=== PATIENT | male | born 1985 | race Caucasian/White ===

== ENCOUNTER 2018-02-13 13:48 | Emergency (ER) | payer OTHER, SELFPAY ==
--- NOTE | 2018-02-13 14:22 | RAD ---
THREE VIEWS LEFT ANKLE: INDICATIONS: Rolled ankle with heel pain. FINDINGS: No acute fracture or subluxation is evident. There is a healed, instrumented calcaneal fracture. 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 There is mild talonavicular osteoar throsis. IMPRESSION: 1. No acute osseous abnormality. 2. Posttraumatic and postsurgical changes of the left ankle. POS: [facility]
--- NOTE | 2018-02-13 14:46 | RAD ---
THREE VIEWS LEFT FOOT: 02/13/2018 HISTORY: Heel pain. Ankle injury. COMPARISON: 06/29/2008 FINDINGS: There is postoperative hardware associated with the calcaneus, treating an old fracture. There is mi ld flattening of the first metatarsal head, unchanged when compared to 06/29/2008. There is no displ aced fracture or evidence of dislocation seen. There is no interval change when compared to the 2007 exam. There is degenerative change at the first tarsometatarsal joint, stable as well. IMPRESSION: Stable appearance of left foot, as detailed above. No acute fracture or dislocation seen. POS: [facility]
== END 2018-02-13 16:17 | disposition home or self-care (01) ==
LOC: ERS 13:48
DX: M72.2 Plantar fascial fibromatosis (principal)

== ENCOUNTER 2018-03-01 18:06 | Emergency (ER) | payer SELFPAY ==
[2018-03-01 18:43] LABS: #Basophils 0.1 thou/uL (0.0-0.2); #Eosinphils 0.1 thou/uL (0.0-0.7); #Lymphocytes 2.7 thou/uL (1.20-3.40); #Monocytes 1.5 thou/uL (0.11-0.59); #Neutrophils 7.8 thou/uL (1.40-6.50); %Basophils 0.4 % (0.0-1.0); %Eosinophils 0.6 % (0.0-10.0); %Lymphocytes 22.3 % (21.0-51.0); %Monocytes 12.2 % (0.0-10.0); %Neutrophils 64.5 % (42.0-75.0); Hemoglobin 14.8 g/dL (14.0-18.0); Mean Corpuscular HGB CONC 34.2 g/dL (32.0-36.0); Mean Corpuscular Hemoglobin 31.2 pg (27.0-31.0); Mean Corpuscular Volume 91.2 fl (80.0-94.0); Mean Platelet Volume 5.9 fL (7.4-10.4); Platelet Count 304 thou/uL (130-400); Red Blood Cell (RBC) Count 4.73 mill/uL (4.70-6.10); White Blood Cell (WBC) Count 12.1 thou/uL (4.8-10.8)
[2018-03-01 19:04] LABS: ALT (SGPT) 22 U/L (8-55); AST (SGOT) 25 U/L (5-34); Albumin 4.4 g/dL (3.5-5.0); Alkaline Phosphatase 63 U/L (40-150); Anion Gap 15 mmol/L (10-20); BUN (Urea Nitrogen) 11 mg/dL (8.9-20.6); Bilirubin, Total 0.6 mg/dL (0.2-1.2); Calc. Creatinine Clearance 0 mL/min (70-130); Calcium 9.4 mg/dL (7.8-10.44); Carbon Dioxide 24 mmol/L (22-29); Chloride 106 mmol/L (98-107); Estimated GFR-MDRD Greater than 90; Globulin 2.3 g/dL (2.4-3.5); Glucose 85 mg/dL (70-105); Potassium 3.7 mmol/L (3.5-5.1); Protein, Total 6.7 g/dL (6.0-8.3); Sodium 141 mmol/L (136-145)
[2018-03-01 19:09] LABS: CKMB 2.1 ng/mL (0-6.6); Troponin I Less than 0.010 ng/mL (< 0.028)
[2018-03-01] MEDS ORDERED: Nicotine 14 MG PATCH TOP SCH (23:59)
[2018-03-02 01:39] LABS: Cocaine Metabolite Screen Not Detected (NotDetected); Medtox Reader # READER 4; Phencyclidine (PCP) Not Detected (NotDetected); THC/Cannabinoid Screen Not Detected (NotDetected)
[2018-03-02 01:40] LABS: Amphetamine Detected (NotDetected); Barbiturates Screen Not Detected (NotDetected); Benzodiazepine Screen Not Detected (NotDetected); Medtox Control Line Valid? VALID (VALID); Methadone Not Detected (NotDetected); Methamphetamine Detected (NotDetected); Opiate Screen Not Detected (NotDetected); Oxycodone Screen Not Detected (NotDetected); Tricyclic Screen Not Detected (NotDetected)
[2018-03-02] MEDS ORDERED: hydrOXYzine 25 MG TAB ONE (02:55)
[2018-03-02] MEDS ORDERED: diphenhydrAMINE 25 MG CAP ONE ×2 (02:55→22:26)
[2018-03-02] MEDS ORDERED: hydrOXYzine Pamoate 25 mg Capsule PO PRN (03:00)
[2018-03-02] MEDS ORDERED: hydrOXYzine Pamoate 25 mg Capsule ONE ×2 (14:23→20:04)
[2018-03-02] MEDS ORDERED: Nicotine 14 MG PATCH ONE (22:27)
== END 2018-03-03 03:20 ==
LOC: ERS 18:06
DX: F15.10 Other stimulant abuse, uncomplicated (principal); F32.9 Major depressive disorder, single episode, unspecified; F17.210 Nicotine dependence, cigarettes, uncomplicated; Z79.899 Other long term (current) drug therapy
CPT/HCPCS: 80053; 80306; 80307; 82553; 84484; 85025; 93005; Q0177

== ENCOUNTER 2018-04-12 14:37 | Emergency (ER) | payer SELFPAY ==
[2018-04-12 15:57] LABS: #Basophils 0.1 thou/uL (0.0-0.2); #Eosinphils 0.1 thou/uL (0.0-0.7); #Lymphocytes 1.9 thou/uL (1.20-3.40); #Monocytes 1.3 thou/uL (0.11-0.59); #Neutrophils 12.4 thou/uL (1.40-6.50); %Basophils 0.3 % (0.0-1.0); %Eosinophils 0.8 % (0.0-10.0); %Lymphocytes 12.2 % (21.0-51.0); %Monocytes 8.3 % (0.0-10.0); %Neutrophils 78.4 % (42.0-75.0); Hemoglobin 15.8 g/dL (14.0-18.0); Mean Corpuscular HGB CONC 34.4 g/dL (32.0-36.0); Mean Corpuscular Volume 93.1 fl (80.0-94.0); Mean Platelet Volume 6.3 fL (7.4-10.4); Platelet Count 341 thou/uL (130-400); RBC Distribution Width 11.9 % (11.5-14.5); Red Blood Cell (RBC) Count 4.92 mill/uL (4.70-6.10); White Blood Cell (WBC) Count 15.9 thou/uL (4.8-10.8)
[2018-04-12 16:20] LABS: ALT (SGPT) 19 U/L (8-55); AST (SGOT) 18 U/L (5-34); Albumin 3.6 g/dL (3.5-5.0); Alkaline Phosphatase 58 U/L (40-150); Anion Gap 9 mmol/L (10-20); BUN (Urea Nitrogen) 11 mg/dL (8.9-20.6); Bilirubin, Total 0.4 mg/dL (0.2-1.2); Calc. Creatinine Clearance 0 mL/min (70-130); Carbon Dioxide 30 mmol/L (22-29); Chloride 104 mmol/L (98-107); Estimated GFR-MDRD Greater than 90; Potassium 3.9 mmol/L (3.5-5.1); Protein, Total 5.6 g/dL (6.0-8.3); Sodium 139 mmol/L (136-145)
[2018-04-12 16:23] LABS: Glucose 53 mg/dL (70-105)
[2018-04-12 16:27] LABS: Bilirubin Small (Negative); Blood, Urine Negative (Negative); Clarity CLEAR (Clear); Glucose, Urine (Dipstick) Negative (Negative); Leukocyte Negative (Negative); Nitrite Negative (Negative); Protein, Urine (Dipstick) Trace mg/dL (Neg-Trace); Specific Gravity, Urine 1.034 (1.002-1.036); pH, Urine 6.5 (5.0-9.0)
[2018-04-12] MEDS ORDERED: Ketorolac Tromethamine 30 MG/ML VIAL ONE (17:39)
[2018-04-12] MEDS ORDERED: Bacitracin Zinc Ointment 30 gm TUBE TOP SCH (17:45)
[2018-04-12 18:04] LABS: Cocaine Metabolite Screen Not Detected (NotDetected); Medtox Reader # READER 4; Phencyclidine (PCP) Not Detected (NotDetected); THC/Cannabinoid Screen Not Detected (NotDetected)
[2018-04-12 18:05] LABS: Amphetamine Detected (NotDetected); Barbiturates Screen Not Detected (NotDetected); Benzodiazepine Screen Not Detected (NotDetected); Medtox Control Line Valid? VALID (VALID); Methadone Not Detected (NotDetected); Methamphetamine Not Detected (NotDetected); Opiate Screen Not Detected (NotDetected); Oxycodone Screen Not Detected (NotDetected); Tricyclic Screen Not Detected (NotDetected)
[2018-04-12] MEDS ORDERED: traZODone HCl 50 MG TAB ONE (23:33)
[2018-04-12] MEDS ORDERED: hydrOXYzine Pamoate 25 mg Capsule PO SCH (23:45)
[2018-04-12] MEDS ORDERED: FLUoxetine HCl 20 MG/5 ML UDCUP PO SCH (23:45)
[2018-04-13] MEDS ORDERED: Sulfameth/Trimethoprim DS 800-160mg TAB ONE (08:36)
[2018-04-13] MEDS ORDERED: Cephalexin 250 MG CAP ONE (08:36)
[2018-04-13] MEDS ORDERED: Sulfameth/Trimethoprim DS 800-160mg TAB PO SCH (09:00)
[2018-04-13] MEDS ORDERED: Cephalexin 250 MG CAP PO SCH (09:00)
[2018-04-13] MEDS ORDERED: FLUoxetine HCl 20 MG/5 ML UDCUP PO SCH (19:00)
[2018-04-14] MEDS ORDERED: Cephalexin 250 MG CAP ONE (00:03)
[2018-04-14] MEDS ORDERED: Sulfameth/Trimethoprim DS 800-160mg TAB ONE (00:03)
[2018-04-14] MEDS ORDERED: traZODone HCl 50 MG TAB ONE (00:03)
[2018-04-14] MEDS ORDERED: Citalopram 20 MG TAB PO SCH (10:00)
[2018-04-14] MEDS ORDERED: Gabapentin 300 MG CAP PO SCH ×2 (10:00→15:00)
[2018-04-14] MEDS ORDERED: Mirtazapine 15 MG TAB PO SCH (21:00)
[2018-04-15] MEDS ORDERED: Citalopram 20 MG TAB PO SCH (09:00)
[2018-04-16] MEDS ORDERED: traZODone HCl 50 MG TAB PO SCH (01:45)
[2018-04-16] MEDS ORDERED: Gabapentin 300 MG CAP PO SCH (07:30)
[2018-04-18 13:05] LABS: #Basophils 0.1 thou/uL (0.0-0.2); #Eosinphils 0.3 thou/uL (0.0-0.7); #Lymphocytes 2.9 thou/uL (1.20-3.40); #Monocytes 1.1 thou/uL (0.11-0.59); #Neutrophils 5.9 thou/uL (1.40-6.50); %Basophils 0.9 % (0.0-1.0); %Eosinophils 2.7 % (0.0-10.0); %Lymphocytes 28.1 % (21.0-51.0); %Monocytes 10.3 % (0.0-10.0); %Neutrophils 57.9 % (42.0-75.0); Hemoglobin 15.3 g/dL (14.0-18.0); Mean Corpuscular HGB CONC 34.8 g/dL (32.0-36.0); Mean Corpuscular Hemoglobin 32.3 pg (27.0-31.0); Mean Corpuscular Volume 92.9 fl (80.0-94.0); Mean Platelet Volume 6.4 fL (7.4-10.4); Platelet Count 284 thou/uL (130-400); RBC Distribution Width 11.8 % (11.5-14.5); Red Blood Cell (RBC) Count 4.74 mill/uL (4.70-6.10); White Blood Cell (WBC) Count 10.3 thou/uL (4.8-10.8)
== END 2018-04-18 16:58 ==
LOC: EEVIPCON 14:37 → ERS 14:37
DX: L03.115 Cellulitis of right lower limb (principal); F32.9 Major depressive disorder, single episode, unspecified; R45.851 Suicidal ideations; F41.9 Anxiety disorder, unspecified; F17.210 Nicotine dependence, cigarettes, uncomplicated; Z79.899 Other long term (current) drug therapy
CPT/HCPCS: 36415; 36416; 80053; 80306; 81003; 83605; 85025; 85652; 86140; 96365; 96366; 96375; J1885; J3370; Q0177